=== PATIENT | male | born 1990 | race Two or more races ===

== ENCOUNTER 2020-05-13 00:38 | Emergency (ER) | payer MEDICAID, OTHER ==
[~2020-05-13] VITALS: Ht 162.6 cm; Wt 95.3 kg
[2020-05-13 00:50] VITALS: BP 141/54
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
[2020-05-13] MEDS ORDERED: Tetanus/Diptheria/Pertussis IM ONE (01:00)
[2020-05-13] MEDS ORDERED: HYDROcodone/Acetamin 5/325 tab ORAL ONE (01:00)
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
--- NOTE | 2020-05-13 01:25 | NUR ---
ED Nurse Note: Pt returned from CT in stable condition.
--- NOTE | 2020-05-13 01:40 | NUR ---
ED Nurse Note: ERMD bedside for lac repair.
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
[2020-05-13] MEDS ORDERED: IBUPROFEN600 M1 ORAL (02:16)
[2020-05-13 02:25] VITALS: BP 139/66
--- NOTE | 2020-05-13 02:25 | NUR ---
ER DISCHARGE NOTE: Patient is cleared to be discharged per ERMD, pt is aox4, on room air, with stable vital signs. pt was given dc and prescription instructions, pt was able to verbalize understanding, pt id band removed. pt is able to ambulate with steady gait. pt took all belongings and accompanied by friend.
== END 2020-05-13 02:25 | disposition home or self-care (01) ==
LOC: EMR 00:50
DX: S01.01XA Laceration without foreign body of scalp, initial encounter (principal); S01.111A Laceration without foreign body of right eyelid and periocular area, initial encounter; S00.10XA Contusion of unspecified eyelid and periocular area, initial encounter; S09.90XA Unspecified injury of head, initial encounter; Z23 Encounter for immunization; X99.0XXA Assault by sharp glass, initial encounter; Y92.9 Unspecified place or not applicable; S05.12XA Contusion of eyeball and orbital tissues, left eye, initial encounter; S05.11XA Contusion of eyeball and orbital tissues, right eye, initial encounter
CPT/HCPCS: 70450; 70486; 90471; 90715; 99284